=== PATIENT | male | born 2000 | race Hispanic/Latino ===

== ENCOUNTER 2023-07-18 16:45 | Emergency (ER) | payer OTHER ==
[~2023-07-18] VITALS: Ht 180.3 cm; Wt 145.1 kg
[2023-07-18] MEDS: KETOROLAC 30MG VIAL (30MG/ML) IM ONE (19:25)
[2023-07-18 19:51] VITALS: TEMP 99
[2023-07-18] MEDS: ACETAMINOPHEN 500 MG TABLET PO ONE (19:51)
[2023-07-18] MEDS ORDERED: ACET-66 PO (20:24)
[2023-07-18] MEDS ORDERED: PANT40TA54 PO (20:24)
[2023-07-18] MEDS ORDERED: CEFD300C3 PO (20:24)
[2023-07-18] MEDS ORDERED: IBUP-2070 PO (20:24)
[2023-07-18 20:38] VITALS: BP 156/95; PULSE 90; RESP 20; O2SAT 98
== END 2023-07-18 20:44 | disposition home or self-care (01) ==
LOC: EDH 16:45
DX: R07.89 Other chest pain (principal); J02.9 Acute pharyngitis, unspecified; Z90.49 Acquired absence of other specified parts of digestive tract
CPT/HCPCS: 99283; 71045; 96372; 93005; J1885